=== PATIENT | female | born 1955 | race African-American/Black ===

== ENCOUNTER 2018-03-26 15:32 | Inpatient (IN) | payer OTHER ==
[~2018-03-26] VITALS: Ht 167.6 cm; Wt 73.9 kg
--- NOTE | ~2018-03-26 | EKG ---
[place] [address] [facility] [place] [address] ELECTROCARDIOGRAM REPORT Name: MARYCHUY YENGARCIASALONI Room #: 356-P [facility] IN .R.#: [id number] Admission: 03/26/18 Attend Phys: Gómez Frias MD Discharge: 03/28/18 Date of : 59 Report #: [id number] THIS REPORT FOR: //name// [facility] ED Test Date: 2018-03-26 Test Time: 15:54:45 Pat Name: KENDALL YEN Department: Room: Gender: F Forcer Maker: [email or web address] : 1955 Requested By: Miguel Chan Order Number: [id number] MD: Nura Brothers Measurements Intervals Coin Rate: 70 P: 39 DE: 174 QRS: 11 QRSD: 89 T: 52 QT: 378 QTc: 408 Interpretive Statements Sinus rhythm No significant abnormality No previous ECG available for comparison Electronically Signed On 03-28-2018 13:58:44 CDT by Nura Brothers [email or web address] <ELECTRONICALLY SIGNED> By: Nura Brothers MD, [facility] 03/28/18 1358 1554 1554 Nura Brothers MD, FACC /EPI
--- NOTE | ~2018-03-26 | HC ---
[facility] [place] [address] CONSULTATION Name: KENDALL YEN Room #: 356-P [facility] IN M.R.#: [id number] Admission: 03/26/18 Attend Phys: Gómez Frias MD Discharge: 03/28/18 Date of : 59 Report #: [id number] THIS REPORT FOR: //name// CC: VAISHNAVI physician/PCP Gómez Frias DATE OF SERVICE: 03/27/2018 HISTORY OF PRESENT ILLNESS: A 63-year-old female patient who was evaluated by me for somewhat unusual symptom. The patient gives a history that she has some discomfort on the left forehead for several years. Now, she has numbness and pain on the left side of the neck and the soft tissue area, which has spread to the left upper and left lower extremity. All of it came spontaneously, they are severe and she does not know anything which makes it better or worse. It is not associated with any motor deficit. Review of systems indicate that this patient is under a lot of stress. She was posted over. She came to the town because the daughter is sick. Daughter's sickness is causing lot of stress to her also. She has moved between [place] and [place] and is waiting to start another job. She had another episode when she was in [place]. It was mostly the visual and they kept her in the hospital and they recommended better control of her blood pressure. They did not do any MRI on her. A 14-point review of systems was carried out and it otherwise looks noncontributory as described above. PAST MEDICAL HISTORY: Positive for an episode where she had visual disturbances. FAMILY HISTORY: Positive for migraine. SOCIAL HISTORY: She states she drinks alcohol, but she drinks only 1 or 2 drinks a day. PHYSICAL EXAMINATION: Indicate she is alert, responsive, oriented, pleasant, able to follow simple and complex command. Cranial nerve examination 2-12 looks unremarkable. She has symmetrical strength, sensation, reflexes and tone in all 4 extremities. There is no cerebellar sign. There is no papilledema. She is reasonably well developed individual who does not have any dysmorphic features of eyes, ears and face. Her pulses are palpable. She has no edema, cyanosis or jaundice. Cardiac examination is unremarkable. No respiratory difficulty or rhonchi was noticed. Her blood pressure is 123/79, respirations 18, pulse is 58, temperature is 98.1. Lab indicate a white count of 11.2, which is trace high, but rest of the labs are normal. She did have a CT scan of the head, which appears unremarkable. [address] [address] CONSULTATION Name: KENDALL YEN Room #: [address] [place] [address] [place] M.R.#: [id number] Admission: 03/26/18 Attend Phys: Gómez Frias MD Discharge: 03/28/18 Date of : 59 Report #: [id number] IMPRESSION: This patient's symptoms are unusual. She needs workup to exclude any underlying pathology. I will go ahead and do an MRI, MRA and an EEG. It could be migraine also. She has a family history of migraine, but not any personal history of migraine. She is also under a lot of stress, which may be contributing to her symptoms. I discussed all of it with the patient and we will await this workup and decide about further management after that. Thank you very much for this referral. <ELECTRONICALLY SIGNED> By: Damaso Mazariegos MD 03/29/18 0943 0855 1914 Damaso Mazariegos MD /nt
--- NOTE | ~2018-03-26 | EEG ---
[facility] [address] [employer] [place] [address] ELECTROENCEPHALOGRAM Name: KENDALL YEN Room #: 356-P [facility] IN M.R.#: [id number] Admission: 03/26/18 Attend Phys: Gómez Frias MD Discharge: 03/28/18 Date of : 59 Report #: [id number] THIS REPORT FOR: //name// CC: VAISHNAVI physician/PCP Gómez Frias DATE OF SERVICE: 03/27/2018 This patient is being evaluated for an unusual spell. EEG is being done to evaluate the possibility of seizure. Background activity in this patient's EEG demonstrates background activity of about 10-11 Hz and 40 microvolt. The patient went to sleep that is associated with bilaterally symmetrical sleep spindle and vertex sharp waves. Photic stimulation is unremarkable. Throughout the record, no active epileptiform activity was noticed. IMPRESSION: This patient's electroencephalogram is within normal limits. Thank you very much for this referral. <ELECTRONICALLY SIGNED> By: Damaso Mazariegos MD 03/29/18 0943 1455 1829 Damaso Mazariegos MD /nt
[2018-03-26 15:34] VITALS: BP 158/103
[2018-03-26 16:07] LABS: HEMOGLOBIN 13.2 gm/dL (12.0-15.0); MCH 30.2 pg (26.0-34.0); MCHC 33.8 g/dL (28.0-37.0); MCV 89.3 fL (80.0-100.0); RBC 4.37 mil/uL (4.20-5.00); RDW 13.3 % (10.5-14.5); WBC 11.2 thou/uL (4.0-11.0)
[2018-03-26] MEDS ORDERED: ASPIR 8181 MG PO (16:11)
[2018-03-26] MEDS ORDERED: NORVASC2.5 MG PO (16:11)
[2018-03-26 16:22] LABS: CALCIUM 9.4 mg/dL (8.5-10.1); CREATININE 0.8 mg/dL (0.6-1.0); POTASSIUM 3.5 mmol/L (3.5-5.1)
[2018-03-26 16:24] LABS: APTT 25.3 Seconds (24.5-32.8); PROTIME 10.7 Seconds (9.3-11.4)
[2018-03-26 18:11] LABS: URINE BILIRUBIN NEGATIVE (Negative); URINE BLOOD 1+ (Negative); URINE CLARITY CLEAR; URINE COLOR YELLOW; URINE GLUCOSE-RANDOM* NEGATIVE (Negative); URINE KETONES NEGATIVE (Negative); URINE LEUKOCYTES NEGATIVE (Negative); URINE NITRITE NEGATIVE (Negative); URINE PROTEIN (DIPSTICK) NEGATIVE (Negative); URINE SPECIFIC GRAVITY <= 1.005 (1.005-1.035); URINE UROBILINOGEN 0.2 E.U./dl (0.2-1.0)
[2018-03-26 18:22] LABS: BACTERIA None Seen /HPF (None Seen); CASTS None Seen /LPF (None Seen); CRYSTALS None Seen /LPF (None Seen); SQUAMOUS 0-3 Few /LPF (0-3); URINE RBC 0-2 Rare /HPF (0-2); URINE WBC None Seen /HPF (0-5)
[2018-03-26 18:29] VITALS: BP 152/88
[2018-03-26 18:32] VITALS: BP 152/88
[2018-03-26 19:18] VITALS: BP 152/977
[2018-03-27 04:10] VITALS: BP 105/70
[2018-03-27 07:48] VITALS: BP 123/79
[2018-03-27 09:49] LABS: HEMATOCRIT 37.6 % (37.0-47.0); HEMOGLOBIN 12.6 gm/dL (12.0-15.0); MCH 29.9 pg (26.0-34.0); MCHC 33.4 g/dL (28.0-37.0); MCV 89.5 fL (80.0-100.0); RBC 4.2 mil/uL (4.20-5.00); RDW 13.4 % (10.5-14.5); WBC 7.3 thou/uL (4.0-11.0)
[2018-03-27 10:00] LABS: CALCIUM 8.9 mg/dL (8.5-10.1); CREATININE 0.8 mg/dL (0.6-1.0); POTASSIUM 3.8 mmol/L (3.5-5.1)
[2018-03-27 10:04] LABS: CHOLESTEROL 202 mg/dL (<200); HDL CHOLESTEROL 62 mg/dL (>40); LDL CHOLESTEROL 129 mg/dL (<100); TC:HDL 3.3 Ratio (Not establshd); TRIGLYCERIDE 59 mg/dL (<150); VLDL 12 mg/dL (<40)
[2018-03-27 10:30] LABS: TSH 1.462 uIU/mL (0.358-3.740)
[2018-03-27 12:14] VITALS: BP 134/81
[2018-03-27 16:49] VITALS: BP 108/69
[2018-03-27 20:45] VITALS: BP 127/82
[2018-03-27 22:06] LABS: GLYCOHEMOGLOBIN (HGB A1C) 5.3 % (4.8-5.6)
[2018-03-28 04:25] VITALS: BP 111/62
[2018-03-28 05:08] LABS: HEMATOCRIT 35.3 % (37.0-47.0); HEMOGLOBIN 11.9 gm/dL (12.0-15.0); MCH 30.2 pg (26.0-34.0); MCHC 33.6 g/dL (28.0-37.0); MCV 89.9 fL (80.0-100.0); RBC 3.93 mil/uL (4.20-5.00); RDW 13.1 % (10.5-14.5); WBC 7.3 thou/uL (4.0-11.0)
[2018-03-28 05:30] LABS: ALBUMIN 3.1 g/dL (3.4-5.0); CALCIUM 8.5 mg/dL (8.5-10.1); CREATININE 0.8 mg/dL (0.6-1.0); TOTAL BILIRUBIN 0.2 mg/dL (<0.1-1.0); TOTAL PROTEIN 6.5 g/dL (6.4-8.2)
[2018-03-28 07:23] VITALS: BP 127/92
[2018-03-28 10:39] VITALS: BP 127/92
== END 2018-03-28 11:55 | disposition home or self-care (01) | DRG 103 ==
LOC: ER 15:32 → EROBS 18:22 → 3W 19:05
PROVIDERS: Hospitalist; Nurse Practitioner Family; Physician Assistant; Psychiatry & Neurology Neuromuscular Medicine
DX: R51 Headache (principal); I10 Essential (primary) hypertension; E78.5 Hyperlipidemia, unspecified; Z79.899 Other long term (current) drug therapy; Z82.0 Family history of epilepsy and other diseases of the nervous system; Z82.3 Family history of stroke
CPT/HCPCS: 10779